=== PATIENT | female | born 1945 | race Caucasian/White ===

== ENCOUNTER 2023-12-05 06:53 | Day surgery (SDC) | payer MEDICARE, BC ==
[2023-12-05] MEDS: Lactated Ringers 1,000 ML IV SCH (07:22)
[2023-12-05] MEDS ORDERED: Propofol 200 MG/20 ML SDV ONE ×2 (07:47→09:22)
[2023-12-05] MEDS ORDERED: fentaNYL 100 MCG/2 ML SDV ONE (07:47)
[2023-12-05 09:55] VITALS: BP 113/76; PULSE 64
== END 2023-12-05 10:36 | disposition home or self-care (01) ==
LOC: VM.SDS 06:53
PROVIDERS: ATTEND Student in an Organized Health Care Education/Training Program
DX: Z12.11 Encounter for screening for malignant neoplasm of colon (principal); I10 Essential (primary) hypertension; E03.9 Hypothyroidism, unspecified; M81.0 Age-related osteoporosis without current pathological fracture; E78.2 Mixed hyperlipidemia; Z79.890 Hormone replacement therapy; Z79.899 Other long term (current) drug therapy
CPT/HCPCS: 00811; 88305; 99100; J2704; J3010; J7120

== ENCOUNTER 2024-12-03 08:34 | Day surgery (SDC) | payer MEDICARE, BC ==
[~2024-12-03 08:34] MED LIST: Esmolol 100 MG/10 ML SDV IVPUSH PRN
[2024-12-03] MEDS: Lactated Ringers 1,000 ML IV SCH (08:51)
[2024-12-03] MEDS ORDERED: fentaNYL 100 MCG/2 ML SDV ONE (09:18)
[2024-12-03] MEDS ORDERED: Propofol 200 MG/20 ML SDV ONE (09:18)
[2024-12-03 10:14] VITALS: PULSE 75
[2024-12-03 10:17] VITALS: BP 128/76
== END 2024-12-03 11:13 | disposition home or self-care (01) ==
LOC: VM.SDS 08:34
PROVIDERS: ATTEND Student in an Organized Health Care Education/Training Program
DX: Z12.11 Encounter for screening for malignant neoplasm of colon (principal); D12.5 Benign neoplasm of sigmoid colon; I10 Essential (primary) hypertension; E78.5 Hyperlipidemia, unspecified; E03.9 Hypothyroidism, unspecified; Z98.0 Intestinal bypass and anastomosis status; Z90.49 Acquired absence of other specified parts of digestive tract; Z79.899 Other long term (current) drug therapy; Z79.890 Hormone replacement therapy; Z86.0100 Personal history of colon polyps, unspecified
CPT/HCPCS: 00811; 88305; 99100; J2704; J3010; J7120